=== PATIENT | male | born 1965 | race Two or more races ===

== ENCOUNTER 2016-12-10 22:53 | Emergency (ER) | payer OTHER ==
[~2016-12-10] VITALS: Ht 177.8 cm; Wt 90.7 kg
[~2016-12-10 22:53] MED LIST: AML5T PO; CARV25TA55 PO; CLON0.2T PO; HYDR25TA4 PO; LISI40TA PO; OXY20CRT PO
[2016-12-10 23:48] LABS: Basophils # (auto) 0 uL; Basophils % (auto) 0.4 % (0.0-2.0); DEFINITIVE VIEW TRANSMISSION; Eosinophils # (auto) 0.1 uL; Hematocrit 38.4 % (41.0-53.0); Hemoglobin 11.8 g/dL (13.5-17.5); Lymphocytes # (auto) 1.5 uL; Lymphocytes % (auto) 13.9 % (10.0-50.0); Mean Corpuscular Hemoglobin 24.5 pg (28.0-32.0); Mean Corpuscular Hgb Conc. 30.8 g/dL (32.0-36.0); Mean Corpuscular Volume 79.6 fL (80.0-100.0); Mean Platelet Volume 10.3 fL (7.4-10.4); Monocytes # (auto) 0.4 uL; Monocytes % (auto) 3.4 % (0.0-12.0); Neutrophils # (auto) 8.7 uL; Neutrophils % (auto) 81.3 % (37.0-80.0); Platelet Count (auto) 274 10^3/uL (140-450); Red Cell Distribution Width 15.5 % (11.6-16.0); White Blood Cell 10.7 10^3/uL (4.4-10.8)
[2016-12-11 00:04] LABS: Albumin 3.2 g/dL (3.4-5.0); BUN/Creatinine Ratio 18.1; Calcium 8.2 mg/dL (8.5-10.1); Potassium 3.6 mmol/L (3.5-5.1)
[2016-12-11 00:05] LABS: INR 1.09 (0.9-1.15); Partial Thromboplastin Time 26.4 sec (22.64-33.71); Prothrombin Time 11.2 sec (9.37-12.3)
[2016-12-11 00:07] LABS: Bilirubin, Total 0.6 mg/dL (0.2-1.0); Total Protein 6.8 g/dL (6.4-8.2)
[2016-12-11 00:15] LABS: B-Type Natriuretic Peptide 1724.26 pg/mL (0-100); Temperature: 22.3 C (20.0-25.0)
[2016-12-11] MEDS ORDERED: LORazepam 2MG/ML-1ML VIAL IV ONE (04:30)
[2016-12-11] MEDS ORDERED: FUROSEMIDE 20 MG/2 ML VIAL IV ONE (07:00)
[2016-12-11 08:42] LABS: Urine Bilirubin Negative (Negative); Urine Blood Negative /uL (Negative); Urine Color Colorless (Yellow); Urine Glucose Normal (Normal); Urine Ketone Negative (Negative); Urine Nitrite Negative (Negative); Urine RBC <1 /hpf (0 - 3); Urine Urobilinogen Normal (Negative); Urine pH 6.5 (5.0-8.0)
[2016-12-11 12:35] VITALS: BP 145/90
== END 2016-12-11 12:58 | disposition home or self-care (01) ==
LOC: ER 23:00
DX: I11.0 Hypertensive heart disease with heart failure (principal); I50.32 Chronic diastolic (congestive) heart failure; D64.9 Anemia, unspecified; R79.89 Other specified abnormal findings of blood chemistry; R73.9 Hyperglycemia, unspecified
CPT/HCPCS: 36415; 71010; 80053; 81001; 83880; 84484; 85025; 85379; 85610; 85730; 93005; 96374; 96375; 99285; G0434; J1940; J2060

== ENCOUNTER 2018-02-21 13:13 | Inpatient (IN) | payer OTHER ==
[~2018-02-21] VITALS: Ht 177.8 cm; Wt 111.0 kg
[2018-02-21] MEDS ORDERED: cloNIDine HCL 0.1 MG TAB ONE (13:28)
[2018-02-21] MEDS ORDERED: cloNIDine HCL 0.1 MG TAB PO ONE (13:30)
[2018-02-21 14:04] LABS: Basophils # (auto) 0.1 uL; Basophils % (auto) 0.7 % (0.0-2.0); Eosinophils # (auto) 0.2 uL; Hemoglobin 12.9 g/dL (13.5-17.5); Neutrophils # (auto) 7.2 uL
[2018-02-21 14:05] LABS: Eosinophils % (auto) 1.6 % (0.0-7.0); Hematocrit 40.4 % (41.0-53.0); Lymphocytes # (auto) 1.4 uL; Lymphocytes % (auto) 14.8 % (10.0-50.0); Mean Corpuscular Hemoglobin 26.5 pg (28.0-32.0); Mean Corpuscular Volume 82.7 fL (80.0-100.0); Monocytes # (auto) 0.5 uL; Monocytes % (auto) 5.2 % (0.0-12.0); Neutrophils % (auto) 77.7 % (37.0-80.0); Nucleated Red Blood Cells % 0.1 %; Platelet Count (auto) 240 10^3/uL (140-450); Red Blood Cells 4.88 10^6/uL (4.5-5.90); Red Cell Distribution Width 15.6 % (11.8-14.3); White Blood Cell 9.3 10^3/uL (4.4-10.8)
[2018-02-21 14:19] LABS: Albumin 3.3 g/dL (3.4-5.0); BUN/Creatinine Ratio 22.8; Bilirubin, Total 0.6 mg/dL (0.2-1.0); Calcium 8.4 mg/dL (8.5-10.1); Potassium 3.7 mmol/L (3.5-5.1); Total Protein 7.1 g/dL (6.4-8.2)
[2018-02-21] MEDS ORDERED: FUROSEMIDE 40 MG/4 ML VIAL IV ONE (14:45)
[2018-02-21] MEDS ORDERED: NITROGLYCERIN 0.4 MG SL TAB SL ONE (17:15)
[2018-02-21] MEDS ORDERED: PROMETHAZINE HCL 25 MG/ML 1ML IV PRN (18:30)
[2018-02-21] MEDS ORDERED: ACETAMINOPHEN 500 MG TAB PO PRN (18:30)
[2018-02-21] MEDS ORDERED: LACTULOSE 20Gm/30ML SOLN PO PRN (18:30)
[2018-02-21] MEDS ORDERED: MORPHINE SULFATE 8mg/ml INJ SDV IV PRN ×2 (18:30)
[2018-02-21] MEDS ORDERED: NITROGLYCERIN 0.4 MG SL TAB SL PRN (18:30)
[2018-02-21] MEDS: FUROSEMIDE 40 MG/4 ML VIAL IV SCH (19:00)
[2018-02-21 19:53] LABS: Alcohol, Urine < 3.0 mg/dL (0-5); Amphetamine Screen, Urine POSITIVE (NEGATIVE); Barbiturate Scree,Urine NEGATIVE (NEGATIVE); Benzodiazephine Screen, Urine NEGATIVE (NEGATIVE); Cannabinoid Screen, Urine NEGATIVE (NEGATIVE); Cocaine Screen, Urine NEGATIVE (NEGATIVE); Opiate Scree,Urine NEGATIVE (NEGATIVE); Phencyclidine Screen, Urine NEGATIVE (NEGATIVE)
[2018-02-21] MEDS: LORazepam 0.5 MG TAB PO PRN (20:27)
[2018-02-21] MEDS: SODIUM CHLOR 0.9% PF (SALINE LOCK) 10ML VIAL/SYR IV SCH (22:25)
[2018-02-21] MEDS: cloNIDine HCL 0.1 MG TAB PO SCH (22:37)
[2018-02-21] MEDS: ATORVASTATIN 20 MG TAB PO SCH (22:37)
[2018-02-21] MEDS: oxyCODONE ER 10 MG TAB PO SCH (22:38)
[2018-02-21] MEDS: POTASSIUM CHL 20 Meq TABLET PO SCH (22:38)
[2018-02-21] MEDS: CARVEDILOL 12.5 MG TAB PO SCH (22:39)
[2018-02-21 23:25] LABS: INR 1.05 (0.9-1.15); Partial Thromboplastin Time 26.6 sec (22.64-33.71); Prothrombin Time 11.4 sec (9.37-12.3)
[2018-02-22 01:23] VITALS: BP 123/73
[2018-02-22] MEDS: LORazepam 0.5 MG TAB PO PRN ×2 (02:49→22:37)
[2018-02-22 04:00] VITALS: BP 122/84
[2018-02-22] MEDS: SODIUM CHLOR 0.9% PF (SALINE LOCK) 10ML VIAL/SYR IV SCH ×2 (06:00→13:54)
[2018-02-22] MEDS: FUROSEMIDE 40 MG/4 ML VIAL IV SCH (06:00)
[2018-02-22] MEDS: cloNIDine HCL 0.1 MG TAB PO SCH ×4 (06:00→22:38)
[2018-02-22 06:22] LABS: Basophils # (auto) 0.1 uL; Basophils % (auto) 0.6 % (0.0-2.0); Eosinophils # (auto) 0.2 uL; Eosinophils % (auto) 2.1 % (0.0-7.0); Hemoglobin 12.4 g/dL (13.5-17.5); Lymphocytes # (auto) 1.1 uL; Monocytes # (auto) 0.5 uL
[2018-02-22 06:24] LABS: Lymphocytes % (auto) 10.4 % (10.0-50.0); Mean Corpuscular Hemoglobin 26.5 pg (28.0-32.0); Mean Corpuscular Hgb Conc. 32.6 g/dL (32.0-36.0); Mean Corpuscular Volume 81.5 fL (80.0-100.0); Monocytes % (auto) 5.1 % (0.0-12.0); Neutrophils # (auto) 8.2 uL; Neutrophils % (auto) 81.8 % (37.0-80.0); Platelet Count (auto) 237 10^3/uL (140-450); Red Blood Cells 4.66 10^6/uL (4.5-5.90); Red Cell Distribution Width 14.8 % (11.8-14.3); White Blood Cell 10.1 10^3/uL (4.4-10.8)
[2018-02-22 06:53] LABS: Albumin 3.2 g/dL (3.4-5.0); BUN/Creatinine Ratio 20.1; Calcium 8.1 mg/dL (8.5-10.1); Potassium 3.6 mmol/L (3.5-5.1); Total Protein 6.7 g/dL (6.4-8.2)
[2018-02-22] MEDS: amLODIPine BESYLATE 5 MG TAB PO SCH (07:00)
[2018-02-22 08:00] VITALS: BP 122/85
[2018-02-22] MEDS: oxyCODONE ER 10 MG TAB PO SCH ×2 (09:40→22:40)
[2018-02-22] MEDS: LISINOPRIL 20 MG TAB PO SCH (09:41)
[2018-02-22] MEDS: POTASSIUM CHL 20 Meq TABLET PO SCH ×2 (09:41→22:37)
[2018-02-22] MEDS: ASPirin 81 mg TAB PO SCH (09:42)
[2018-02-22] MEDS: CARVEDILOL 12.5 MG TAB PO SCH ×2 (09:42→22:39)
[2018-02-22] MEDS: ENOXAPARIN SOD 40 MG/0.4 ML SYRINGE SC SCH (09:42)
[2018-02-22] MEDS: NITROGLYCERIN 0.2MG/HR TOPICAL PATCH TD SCH (09:44)
[2018-02-22 12:00] VITALS: BP 125/66
[2018-02-22 22:00] VITALS: BP 117/73
[2018-02-22] MEDS: ATORVASTATIN 20 MG TAB PO SCH (22:37)
[2018-02-22] MEDS: TEMAZEPAM 15 MG CAP PO PRN (22:37)
[2018-02-23] VITALS (7 sets, daily range): BP systolic 104–119; BP diastolic 63–80
[2018-02-23] MEDS: SODIUM CHLOR 0.9% PF (SALINE LOCK) 10ML VIAL/SYR IV SCH ×4 (00:15→21:29)
[2018-02-23] MEDS: amLODIPine BESYLATE 5 MG TAB PO SCH (06:54)
[2018-02-23] MEDS: cloNIDine HCL 0.1 MG TAB PO SCH ×3 (06:55→21:29)
[2018-02-23] MEDS: ASPirin 81 mg TAB PO SCH (10:22)
[2018-02-23] MEDS: CARVEDILOL 12.5 MG TAB PO SCH ×2 (10:24→21:29)
[2018-02-23] MEDS: POTASSIUM CHL 20 Meq TABLET PO SCH ×2 (10:25→21:29)
[2018-02-23] MEDS: oxyCODONE ER 10 MG TAB PO SCH ×2 (10:25→21:29)
[2018-02-23] MEDS: ENOXAPARIN SOD 40 MG/0.4 ML SYRINGE SC SCH (10:27)
[2018-02-23] MEDS: LISINOPRIL 20 MG TAB PO SCH (10:27)
[2018-02-23] MEDS: NITROGLYCERIN 0.2MG/HR TOPICAL PATCH TD SCH (10:28)
[2018-02-23 12:42] LABS: Potassium 3.8 mmol/L (3.5-5.1)
[2018-02-23 12:43] LABS: Calcium 8.1 mg/dL (8.5-10.1)
[2018-02-23] MEDS: ATORVASTATIN 20 MG TAB PO SCH (21:30)
[2018-02-23] MEDS: LORazepam 0.5 MG TAB PO PRN (21:30)
[2018-02-24] MEDS: LORazepam 0.5 MG TAB PO PRN ×2 (03:48→23:19)
[2018-02-24 05:41] VITALS: BP 105/74
[2018-02-24] MEDS: SODIUM CHLOR 0.9% PF (SALINE LOCK) 10ML VIAL/SYR IV SCH (05:46)
[2018-02-24] MEDS: amLODIPine BESYLATE 5 MG TAB PO SCH (05:50)
[2018-02-24] MEDS: cloNIDine HCL 0.1 MG TAB PO SCH ×3 (05:50→22:00)
[2018-02-24 07:29] LABS: Eosinophils # (auto) 0.2 uL; Lymphocytes # (auto) 1.4 uL
[2018-02-24 07:32] LABS: Basophils # (auto) 0 uL; Basophils % (auto) 0.6 % (0.0-2.0); Eosinophils % (auto) 2.6 % (0.0-7.0); Hematocrit 35.5 % (41.0-53.0); Hemoglobin 11.6 g/dL (13.5-17.5); Lymphocytes % (auto) 18.1 % (10.0-50.0); Mean Corpuscular Hemoglobin 26.5 pg (28.0-32.0); Mean Corpuscular Hgb Conc. 32.5 g/dL (32.0-36.0); Mean Corpuscular Volume 81.4 fL (80.0-100.0); Monocytes # (auto) 0.6 uL; Monocytes % (auto) 7.2 % (0.0-12.0); Neutrophils # (auto) 5.6 uL; Neutrophils % (auto) 71.5 % (37.0-80.0); Nucleated Red Blood Cells % 0.2 %; Platelet Count (auto) 283 10^3/uL (140-450); Red Blood Cells 4.36 10^6/uL (4.5-5.90); Red Cell Distribution Width 15.1 % (11.8-14.3); White Blood Cell 7.8 10^3/uL (4.4-10.8)
[2018-02-24 07:34] LABS: BUN/Creatinine Ratio 26.1; Potassium 4.5 mmol/L (3.5-5.1)
[2018-02-24] MEDS ORDERED: SODIUM CHLORIDE 0.9% 1,000 ML IV ONE (08:00)
[2018-02-24 09:00] VITALS: BP 116/75
[2018-02-24] MEDS: ASPirin 81 mg TAB PO SCH (10:01)
[2018-02-24] MEDS: oxyCODONE ER 10 MG TAB PO SCH ×2 (10:03→22:26)
[2018-02-24] MEDS: POTASSIUM CHL 20 Meq TABLET PO SCH ×2 (10:03→22:27)
[2018-02-24] MEDS: CARVEDILOL 12.5 MG TAB PO SCH ×2 (10:03→22:27)
[2018-02-24] MEDS: ENOXAPARIN SOD 40 MG/0.4 ML SYRINGE SC SCH (10:04)
[2018-02-24] MEDS: NITROGLYCERIN 0.2MG/HR TOPICAL PATCH TD SCH (10:05)
[2018-02-24] MEDS: SODIUM CHLORIDE 0.9% 1,000 ML IV SCH ×2 (10:06→22:28)
[2018-02-24 13:00] VITALS: BP 119/83
[2018-02-24 17:04] VITALS: BP 103/86
[2018-02-24 20:00] VITALS: BP 129/91
[2018-02-24 22:24] VITALS: BP 129/91
[2018-02-24] MEDS: ATORVASTATIN 20 MG TAB PO SCH (22:26)
[2018-02-25] VITALS (7 sets, daily range): BP systolic 94–143; BP diastolic 46–97
[2018-02-25] MEDS: SODIUM CHLORIDE 0.9% 1,000 ML IV SCH (00:44)
[2018-02-25] MEDS: cloNIDine HCL 0.1 MG TAB PO SCH ×3 (05:55→21:53)
[2018-02-25 07:36] LABS: Basophils # (auto) 0 uL; Basophils % (auto) 0.5 % (0.0-2.0); Eosinophils # (auto) 0.2 uL; Hemoglobin 12.3 g/dL (13.5-17.5); Lymphocytes # (auto) 1.3 uL; Monocytes # (auto) 0.5 uL; Neutrophils # (auto) 5.9 uL; White Blood Cell 7.9 10^3/uL (4.4-10.8)
[2018-02-25 07:41] LABS: Hematocrit 39.8 % (41.0-53.0); Lymphocytes % (auto) 16.2 % (10.0-50.0); Mean Corpuscular Hgb Conc. 30.9 g/dL (32.0-36.0); Mean Corpuscular Volume 84.1 fL (80.0-100.0); Neutrophils % (auto) 74.3 % (37.0-80.0); Nucleated Red Blood Cells % 0.2 %; Platelet Count (auto) 254 10^3/uL (140-450); Potassium 4.4 mmol/L (3.5-5.1); Red Blood Cells 4.73 10^6/uL (4.5-5.90); Red Cell Distribution Width 15.7 % (11.8-14.3)
[2018-02-25 07:46] LABS: BUN/Creatinine Ratio 29.9; Calcium 8.2 mg/dL (8.5-10.1)
[2018-02-25] MEDS ORDERED: ADENOSINE 82 MG in GIVE UN-DILUTED 0 ML IV STA (08:25)
[2018-02-25] MEDS: ASPirin 81 mg TAB PO SCH (11:40)
[2018-02-25] MEDS: CARVEDILOL 12.5 MG TAB PO SCH ×2 (11:41→21:54)
[2018-02-25] MEDS: ENOXAPARIN SOD 40 MG/0.4 ML SYRINGE SC SCH (11:41)
[2018-02-25] MEDS: oxyCODONE ER 10 MG TAB PO SCH ×2 (11:41→21:56)
[2018-02-25] MEDS: POTASSIUM CHL 20 Meq TABLET PO SCH ×2 (11:41→21:54)
[2018-02-25] MEDS: NITROGLYCERIN 0.2MG/HR TOPICAL PATCH TD SCH (11:42)
[2018-02-25 18:17] LABS: Urine Bacteria NONE SEEN /hpf (None Seen); Urine Blood Negative /uL (Negative); Urine Specific Gravity 1.023 (1.001-1.035); Urine WBC 1 /hpf (0 - 3)
[2018-02-25] MEDS: ATORVASTATIN 20 MG TAB PO SCH (21:54)
[2018-02-25] MEDS: LORazepam 0.5 MG TAB PO PRN (21:56)
[2018-02-26] MEDS: TEMAZEPAM 15 MG CAP PO PRN (00:37)
[2018-02-26 05:14] VITALS: BP 140/79
[2018-02-26] MEDS: cloNIDine HCL 0.1 MG TAB PO SCH ×4 (05:57→21:23)
[2018-02-26 06:28] LABS: Eosinophils # (auto) 0.2 uL
[2018-02-26 06:31] LABS: Basophils # (auto) 0 uL; Basophils % (auto) 0.6 % (0.0-2.0); Eosinophils % (auto) 2.1 % (0.0-7.0); Hematocrit 38.7 % (41.0-53.0); Hemoglobin 12.3 g/dL (13.5-17.5); Lymphocytes # (auto) 1.3 uL; Lymphocytes % (auto) 18.6 % (10.0-50.0); Mean Corpuscular Hemoglobin 26.4 pg (28.0-32.0); Mean Corpuscular Hgb Conc. 31.7 g/dL (32.0-36.0); Mean Corpuscular Volume 83.4 fL (80.0-100.0); Monocytes # (auto) 0.5 uL; Monocytes % (auto) 7.5 % (0.0-12.0); Neutrophils # (auto) 5.1 uL; Neutrophils % (auto) 71.2 % (37.0-80.0); Platelet Count (auto) 253 10^3/uL (140-450); Red Blood Cells 4.64 10^6/uL (4.5-5.90); Red Cell Distribution Width 15.5 % (11.8-14.3); White Blood Cell 7.2 10^3/uL (4.4-10.8)
[2018-02-26 07:14] LABS: Phosphorus 3.3 mg/dL (2.5-4.90); Uric Acid 9.1 mg/dL (3.5-7.2)
[2018-02-26 07:19] LABS: BUN/Creatinine Ratio 28.2; Calcium 8.3 mg/dL (8.5-10.1)
[2018-02-26 08:37] VITALS: BP 111/70
[2018-02-26] MEDS: ENOXAPARIN SOD 40 MG/0.4 ML SYRINGE SC SCH (10:24)
[2018-02-26] MEDS: NITROGLYCERIN 0.2MG/HR TOPICAL PATCH TD SCH (10:24)
[2018-02-26] MEDS: oxyCODONE ER 10 MG TAB PO SCH ×2 (10:26→21:19)
[2018-02-26] MEDS: ASPirin 81 mg TAB PO SCH (10:26)
[2018-02-26] MEDS: CARVEDILOL 12.5 MG TAB PO SCH ×3 (10:26→21:24)
[2018-02-26] MEDS: POTASSIUM CHL 20 Meq TABLET PO SCH (10:34)
[2018-02-26 12:40] VITALS: BP 97/67
[2018-02-26 17:13] VITALS: BP 125/83
[2018-02-26] MEDS: SOD CHL 0.45% 1,000 ML IV SCH (18:20)
[2018-02-26] MEDS: ATORVASTATIN 20 MG TAB PO SCH (21:18)
[2018-02-26 22:00] VITALS: BP 130/81
[2018-02-27] VITALS (7 sets, daily range): BP systolic 111–147; BP diastolic 71–94
[2018-02-27] MEDS: LORazepam 0.5 MG TAB PO PRN ×2 (00:16→11:33)
[2018-02-27] MEDS: cloNIDine HCL 0.1 MG TAB PO SCH (05:59)
[2018-02-27 07:24] LABS: Basophils # (auto) 0 uL; Basophils % (auto) 0.5 % (0.0-2.0); Eosinophils # (auto) 0.2 uL; Eosinophils % (auto) 2.2 % (0.0-7.0); Hemoglobin 12.2 g/dL (13.5-17.5); Lymphocytes # (auto) 1.8 uL; Mean Corpuscular Volume 82.5 fL (80.0-100.0); Monocytes # (auto) 0.6 uL
[2018-02-27 07:30] LABS: Hematocrit 38.6 % (41.0-53.0); Lymphocytes % (auto) 22.6 % (10.0-50.0); Mean Corpuscular Hgb Conc. 31.5 g/dL (32.0-36.0); Monocytes % (auto) 7.4 % (0.0-12.0); Neutrophils # (auto) 5.2 uL; Neutrophils % (auto) 67.3 % (37.0-80.0); Nucleated Red Blood Cells % 0.2 %; Platelet Count (auto) 272 10^3/uL (140-450); Red Blood Cells 4.68 10^6/uL (4.5-5.90); White Blood Cell 7.8 10^3/uL (4.4-10.8)
[2018-02-27 07:33] LABS: Calcium 8.3 mg/dL (8.5-10.1); Potassium 5.4 mmol/L (3.5-5.1)
[2018-02-27] MEDS: HYDROcodone-ACET 5/325MG TAB PO PRN (07:52)
[2018-02-27] MEDS ORDERED: SODIUM POLYSTYRENE SULF 15GM/60ML SUSP PO ONE (09:00)
[2018-02-27] MEDS: ENOXAPARIN SOD 40 MG/0.4 ML SYRINGE SC SCH (10:34)
[2018-02-27] MEDS: oxyCODONE ER 10 MG TAB PO SCH ×2 (10:35→21:26)
[2018-02-27] MEDS: CARVEDILOL 12.5 MG TAB PO SCH ×2 (10:35→21:25)
[2018-02-27] MEDS: ASPirin 81 mg TAB PO SCH (10:36)
[2018-02-27] MEDS: SOD CHL 0.45% 1,000 ML IV SCH (19:17)
[2018-02-27] MEDS: ALBUTEROL SULF 2.5 MG/0.5ML(0.5%) NEB SOLN NEB PRN (19:32)
[2018-02-27] MEDS: ATORVASTATIN 20 MG TAB PO SCH (21:25)
[2018-02-28] MEDS: ALBUTEROL SULF 2.5 MG/0.5ML(0.5%) NEB SOLN NEB PRN ×2 (00:23→22:07)
[2018-02-28 05:00] VITALS: BP 151/96
[2018-02-28 06:18] LABS: Basophils # (auto) 0 uL; Eosinophils # (auto) 0.2 uL; Eosinophils % (auto) 2.4 % (0.0-7.0); Monocytes # (auto) 0.6 uL; Nucleated Red Blood Cells % 0.1 %
[2018-02-28 06:21] LABS: Basophils % (auto) 0.6 % (0.0-2.0); Hematocrit 36.5 % (41.0-53.0); Hemoglobin 11.6 g/dL (13.5-17.5); Lymphocytes # (auto) 1.3 uL; Lymphocytes % (auto) 17.8 % (10.0-50.0); Mean Corpuscular Hemoglobin 26.1 pg (28.0-32.0); Mean Corpuscular Hgb Conc. 31.7 g/dL (32.0-36.0); Mean Corpuscular Volume 82.2 fL (80.0-100.0); Monocytes % (auto) 8.4 % (0.0-12.0); Neutrophils # (auto) 5.1 uL; Neutrophils % (auto) 70.8 % (37.0-80.0); Platelet Count (auto) 241 10^3/uL (140-450); Red Blood Cells 4.45 10^6/uL (4.5-5.90); Red Cell Distribution Width 15.3 % (11.8-14.3); White Blood Cell 7.2 10^3/uL (4.4-10.8)
[2018-02-28 06:28] LABS: BUN/Creatinine Ratio 29.3; Calcium 8.3 mg/dL (8.5-10.1); Potassium 4.8 mmol/L (3.5-5.1)
[2018-02-28 09:01] VITALS: BP 140/101
[2018-02-28] MEDS: ASPirin 81 mg TAB PO SCH (09:57)
[2018-02-28] MEDS: CARVEDILOL 12.5 MG TAB PO SCH ×2 (09:57→21:36)
[2018-02-28] MEDS: oxyCODONE ER 10 MG TAB PO SCH ×2 (09:58→21:35)
[2018-02-28] MEDS: ENOXAPARIN SOD 40 MG/0.4 ML SYRINGE SC SCH (09:59)
[2018-02-28 12:19] VITALS: BP 153/109
[2018-02-28 16:43] VITALS: BP 143/103
[2018-02-28 20:00] VITALS: BP 149/89
[2018-02-28] MEDS: ATORVASTATIN 20 MG TAB PO SCH (21:34)
[2018-02-28 22:00] VITALS: BP 149/89
[2018-02-28] MEDS: LORazepam 0.5 MG TAB PO PRN (23:44)
[2018-03-01] VITALS (8 sets, daily range): BP systolic 138–154; BP diastolic 66–110
[2018-03-01] MEDS: ALBUTEROL SULF 2.5 MG/0.5ML(0.5%) NEB SOLN NEB PRN (07:14)
[2018-03-01] MEDS: LORazepam 0.5 MG TAB PO PRN (09:49)
[2018-03-01] MEDS: ASPirin 81 mg TAB PO SCH (09:50)
[2018-03-01] MEDS: CARVEDILOL 12.5 MG TAB PO SCH ×2 (09:50→21:51)
[2018-03-01] MEDS: oxyCODONE ER 10 MG TAB PO SCH ×2 (09:50→21:53)
[2018-03-01] MEDS: ENOXAPARIN SOD 40 MG/0.4 ML SYRINGE SC SCH (09:50)
[2018-03-01] MEDS: HYDROcodone-ACET 5/325MG TAB PO PRN (16:00)
[2018-03-01] MEDS: ATORVASTATIN 20 MG TAB PO SCH (21:51)
[2018-03-01] MEDS: ZOLPIDEM TARTRATE 5 MG TAB PO PRN (21:51)
[2018-03-02] VITALS (8 sets, daily range): BP systolic 134–155; BP diastolic 81–117
[2018-03-02] MEDS ORDERED: SODIUM CHLORIDE 0.9 % NEB SOLN 3ML NEB ONE (06:01)
[2018-03-02] MEDS: ALBUTEROL SULF 2.5 MG/0.5ML(0.5%) NEB SOLN NEB PRN ×2 (06:10→19:08)
[2018-03-02] MEDS: ASPirin 81 mg TAB PO SCH (09:31)
[2018-03-02] MEDS: oxyCODONE ER 10 MG TAB PO SCH ×2 (09:32→21:53)
[2018-03-02] MEDS: ENOXAPARIN SOD 40 MG/0.4 ML SYRINGE SC SCH (09:33)
[2018-03-02] MEDS: CARVEDILOL 12.5 MG TAB PO SCH ×2 (09:33→21:47)
[2018-03-02 18:57] LABS: BUN/Creatinine Ratio 28.5; Potassium 4.8 mmol/L (3.5-5.1)
[2018-03-02] MEDS: FUROSEMIDE 20 MG TAB PO SCH (19:11)
[2018-03-02] MEDS: HYDROcodone-ACET 5/325MG TAB PO PRN (20:27)
[2018-03-02] MEDS: ZOLPIDEM TARTRATE 5 MG TAB PO PRN (21:47)
[2018-03-02] MEDS: ATORVASTATIN 20 MG TAB PO SCH (21:47)
[2018-03-03 05:00] VITALS: BP 140/83
[2018-03-03] MEDS: FUROSEMIDE 20 MG TAB PO SCH ×2 (06:27→18:11)
[2018-03-03 08:00] VITALS: BP 155/94
[2018-03-03 09:00] VITALS: BP 155/94
[2018-03-03] MEDS: ALBUTEROL SULF 2.5 MG/0.5ML(0.5%) NEB SOLN NEB PRN (09:42)
[2018-03-03] MEDS: ASPirin 81 mg TAB PO SCH (09:43)
[2018-03-03] MEDS: oxyCODONE ER 10 MG TAB PO SCH ×2 (09:44→20:20)
[2018-03-03] MEDS: ENOXAPARIN SOD 40 MG/0.4 ML SYRINGE SC SCH (09:44)
[2018-03-03] MEDS: CARVEDILOL 12.5 MG TAB PO SCH ×2 (09:47→20:31)
[2018-03-03] MEDS: LORazepam 0.5 MG TAB PO PRN (12:10)
[2018-03-03 13:00] VITALS: BP 137/103
[2018-03-03 17:00] VITALS: BP 159/85
[2018-03-03] MEDS: ATORVASTATIN 20 MG TAB PO SCH (20:20)
[2018-03-03] MEDS: ZOLPIDEM TARTRATE 5 MG TAB PO PRN (21:40)
[2018-03-03 22:00] VITALS: BP 166/91
[2018-03-04] MEDS: HYDROcodone-ACET 5/325MG TAB PO PRN (04:26)
[2018-03-04 05:00] VITALS: BP 145/101
[2018-03-04] MEDS: FUROSEMIDE 20 MG TAB PO SCH ×2 (05:25→18:46)
[2018-03-04 06:20] VITALS: BP 147/106
[2018-03-04 08:51] VITALS: BP 147/106
[2018-03-04] MEDS: ENOXAPARIN SOD 40 MG/0.4 ML SYRINGE SC SCH (10:18)
[2018-03-04] MEDS: LORazepam 0.5 MG TAB PO PRN ×2 (10:19→22:15)
[2018-03-04] MEDS: oxyCODONE ER 10 MG TAB PO SCH ×2 (10:19→22:15)
[2018-03-04] MEDS: ASPirin 81 mg TAB PO SCH (10:19)
[2018-03-04] MEDS: CARVEDILOL 12.5 MG TAB PO SCH ×2 (10:20→22:14)
[2018-03-04 12:11] VITALS: BP 154/94
[2018-03-04 16:25] VITALS: BP 149/96
[2018-03-04 22:00] VITALS: BP 166/116
[2018-03-04] MEDS: ATORVASTATIN 20 MG TAB PO SCH (22:13)
[2018-03-05] MEDS ORDERED: cloNIDine HCL 0.1 MG TAB PO PRN (00:45)
[2018-03-05] MEDS: ZOLPIDEM TARTRATE 5 MG TAB PO PRN (01:14)
[2018-03-05 05:00] VITALS: BP 158/111
[2018-03-05] MEDS: FUROSEMIDE 20 MG TAB PO SCH ×2 (06:17→19:20)
[2018-03-05] MEDS: HYDROcodone-ACET 5/325MG TAB PO PRN (08:11)
[2018-03-05 09:00] VITALS: BP_SYST 147; BP_SYST 165; BP_DIAS 97
[2018-03-05] MEDS: ASPirin 81 mg TAB PO SCH (09:49)
[2018-03-05] MEDS: ENOXAPARIN SOD 40 MG/0.4 ML SYRINGE SC SCH (09:49)
[2018-03-05] MEDS: LORazepam 0.5 MG TAB PO PRN (09:50)
[2018-03-05] MEDS: CARVEDILOL 12.5 MG TAB PO SCH (09:50)
[2018-03-05] MEDS: oxyCODONE ER 10 MG TAB PO SCH (09:50)
[2018-03-05 13:00] VITALS: BP 149/83
[2018-03-05 16:52] VITALS: BP 146/93
[2018-03-05 19:39] VITALS: BP 149/83
== END 2018-03-05 21:00 | disposition home or self-care (01) | DRG 194 ==
LOC: ER 13:16 → TELE 13:17 → DOU IN ICU 02-22 → TELE-CENTR 02-22 14:18
PROVIDERS: ADMIT Internal Medicine; ATTEND Internal Medicine Pulmonary Disease
PROC: 5A09357 Assistance with Respiratory Ventilation, Less than 24 Consecutive Hours, Continuous Positive Airway Pressure (ICD-10-PCS; principal; 2018-02-24)
PROC: 4A02XM4 Measurement of Cardiac Total Activity, External Approach (ICD-10-PCS; 2018-02-25)
PROC: 3E073KZ Introduction of Other Diagnostic Substance into Coronary Artery, Percutaneous Approach (ICD-10-PCS; 2018-02-25)
DX: I13.0 Hypertensive heart and chronic kidney disease with heart failure and stage 1 through stage 4 chronic kidney disease, or unspecified chronic kidney disease (principal); N17.0 Acute kidney failure with tubular necrosis; I95.9 Hypotension, unspecified; I42.0 Dilated cardiomyopathy; N18.3 Chronic kidney disease, stage 3 (moderate); E87.5 Hyperkalemia; E44.1 Mild protein-calorie malnutrition; K59.00 Constipation, unspecified; M54.5 Low back pain; F41.9 Anxiety disorder, unspecified; G47.00 Insomnia, unspecified; R01.1 Cardiac murmur, unspecified; I50.43 Acute on chronic combined systolic (congestive) and diastolic (congestive) heart failure; G89.29 Other chronic pain; M21.371 Foot drop, right foot; M21.372 Foot drop, left foot; R74.8 Abnormal levels of other serum enzymes; F15.90 Other stimulant use, unspecified, uncomplicated; F17.210 Nicotine dependence, cigarettes, uncomplicated; Z79.899 Other long term (current) drug therapy; Z68.35 Body mass index [BMI] 35.0-35.9, adult
CPT/HCPCS: 36415; 71046; 76775; 78452; 80048; 80053; 80061; 80307; 81001; 82550; 83735; 83880; 84100; 84443; 84484; 84550; 85025; 85379; 85610; 85652; 85730; 86141; 87081; 93005; 93017; 93306; 94640; 94660; 96361; 96374; J0153

== ENCOUNTER 2018-09-27 16:20 | Emergency (ER) | payer OTHER ==
[~2018-09-27] VITALS: Ht 177.8 cm; Wt 100.7 kg
[~2018-09-27 16:20] MED LIST changes: -AML5T PO; +ASP81EC PO; +ATOR20TA50 PO; +BUME1TAB26 PO; +CIPR-173 PO; -CLON0.2T PO; -HYDR25TA4 PO; -LISI40TA PO; -OXY20CRT PO; +SPIR25TA88 PO; +VALS40TA2 PO
[2018-09-27 17:29] VITALS: BP 170/100
[2018-09-27 17:51] LABS: Basophils # (auto) 0.1 uL; Lymphocytes # (auto) 1.3 uL; Monocytes # (auto) 0.5 uL; Neutrophils # (auto) 4.4 uL
[2018-09-27 17:53] LABS: Eosinophils # (auto) 0.1 uL; Hematocrit 35.1 % (41.0-53.0); Hemoglobin 11.1 g/dL (13.5-17.5); Lymphocytes % (auto) 19.9 % (10.0-50.0); Mean Corpuscular Hemoglobin 25.6 pg (28.0-32.0); Mean Corpuscular Hgb Conc. 31.5 g/dL (32.0-36.0); Mean Corpuscular Volume 81.1 fL (80.0-100.0); Neutrophils % (auto) 69.1 % (37.0-80.0); Platelet Count (auto) 222 10^3/uL (140-450); Red Blood Cells 4.33 10^6/uL (4.5-5.90); Red Cell Distribution Width 17.6 % (11.8-14.3); White Blood Cell 6.3 10^3/uL (4.4-10.8)
[2018-09-27 17:54] LABS: BUN/Creatinine Ratio 33.9; Calcium 8.3 mg/dL (8.5-10.1); Potassium 4.3 mmol/L (3.5-5.1)
[2018-09-27 17:57] LABS: Bilirubin, Total 0.3 mg/dL (0.2-1.0); Total Protein 7.8 g/dL (6.4-8.2)
[2018-09-27 18:18] LABS: Partial Thromboplastin Time 26.5 sec (23.78-33.04); Prothrombin Time 10.7 sec (9.27-12.13)
== END 2018-09-27 18:03 | disposition home or self-care (01) ==
LOC: ER 16:24
DX: Z48.01 Encounter for change or removal of surgical wound dressing (principal); I11.0 Hypertensive heart disease with heart failure; I50.9 Heart failure, unspecified; F17.210 Nicotine dependence, cigarettes, uncomplicated; F12.90 Cannabis use, unspecified, uncomplicated; Z79.899 Other long term (current) drug therapy; Z79.82 Long term (current) use of aspirin
CPT/HCPCS: 36415; 80053; 85025; 85610; 85730

== ENCOUNTER 2018-11-17 10:24 | Emergency (ER) | payer MEDICAID, OTHER ==
[~2018-11-17] VITALS: Ht 177.8 cm; Wt 88.5 kg
[2018-11-17] MEDS ORDERED: LORazepam 0.5 MG TAB PO ONE (11:45)
[2018-11-17 14:32] LABS: Basophils % (auto) 0.7 % (0.0-2.0); Eosinophils # (auto) 0.1 uL; Hemoglobin 10.9 g/dL (13.5-17.5); Mean Corpuscular Hemoglobin 24.8 pg (28.0-32.0); Monocytes # (auto) 0.5 uL; Nucleated Red Blood Cells % 0.1 %
[2018-11-17 14:34] LABS: Basophils # (auto) 0.1 uL; Eosinophils % (auto) 1.3 % (0.0-7.0); Lymphocytes # (auto) 1.1 uL; Mean Corpuscular Hgb Conc. 31.1 g/dL (32.0-36.0); Mean Corpuscular Volume 79.6 fL (80.0-100.0); Neutrophils # (auto) 5.5 uL; Platelet Count (auto) 201 10^3/uL (140-450); Red Cell Distribution Width 19.6 % (11.8-14.3); White Blood Cell 7.3 10^3/uL (4.4-10.8)
[2018-11-17 14:42] LABS: Albumin 3.5 g/dL (3.4-5.0); BUN/Creatinine Ratio 26.4; Calcium 7.8 mg/dL (8.5-10.1); Potassium 4.3 mmol/L (3.5-5.1)
[2018-11-17 14:47] LABS: Bilirubin, Total 0.8 mg/dL (0.2-1.0)
[2018-11-17 15:02] VITALS: BP 155/96
== END 2018-11-17 15:07 | disposition home or self-care (01) ==
LOC: ER 10:24 → EDBD 10:24 → EDUNIT# 10:24 → ER 15:07
DX: I11.0 Hypertensive heart disease with heart failure (principal); I50.9 Heart failure, unspecified; M54.9 Dorsalgia, unspecified; G89.29 Other chronic pain; F17.210 Nicotine dependence, cigarettes, uncomplicated; F12.90 Cannabis use, unspecified, uncomplicated; Z79.82 Long term (current) use of aspirin; Z79.899 Other long term (current) drug therapy; Z95.0 Presence of cardiac pacemaker
CPT/HCPCS: 36415; 70450; 71046; 80053; 84484; 85025; 93005